=== PATIENT | female | born 1965 | race Two or more races ===

== ENCOUNTER 2025-05-20 22:07 | Emergency (ER) | payer SELFPAY ==
[~2025-05-20] VITALS: Ht 152.4 cm; Wt 81.8 kg
[2025-05-20 22:17] VITALS: TEMP 97.9
[2025-05-20 23:05] LABS: APPEARANCE,URINE HAZY (CLEAR); GLUCOSE, URINE (UA) NEGATIVE (NEGATIVE); LEUKOCYTE ESTERASE ,URINE MODERATE (NEGATIVE); NITRATE,URINE NEGATIVE (NEGATIVE); OCCULT BLOOD,URINE LARGE (NEGATIVE); SPECIFIC GRAVITIY, URINE 1.027 (1.003-1.030)
[2025-05-20 23:26] LABS: SQUAMOUS EPITHELIAL CELL,UR Rare /LPF (None Seen)
[2025-05-21 02:20] VITALS: BP 146/88; PULSE 92; RESP 15; O2SAT 99
[2025-05-21] MEDS ORDERED: CEPH-558 PO (02:23)
[2025-05-21] MEDS: CEPHALEXIN MONOHYDRATE 500 MG CAPSULE PO ONE (02:29)
== END 2025-05-21 02:34 | disposition home or self-care (01) ==
LOC: EMS 22:07
DX: N39.0 Urinary tract infection, site not specified (principal); I10 Essential (primary) hypertension; Z98.890 Other specified postprocedural states; Z79.899 Other long term (current) drug therapy
CPT/HCPCS: 81001; 99283